=== PATIENT | male | born 1940 | race Caucasian/White ===

== ENCOUNTER 2022-07-16 11:14 | Inpatient (IN) | payer OTHER ==
[~2022-07-16] VITALS: Ht 175.3 cm; Wt 79.5 kg
[2022-07-16] MEDS: CYANOCOBALAMIN 500 MCG TAB PO SCH (09:00)
[2022-07-16] MEDS: VITAMIN D 1,000 INTERNATIONAL UNITS TABLET PO SCH (09:00)
[2022-07-16] MEDS ORDERED: NS 2,000 ML in IV 1 EA IV ONE (11:35)
[2022-07-16 12:11] LABS: BASO # 0.1 10^3/uL (0.0-0.2); BASO % 0.3 % (0.0-1.0); EOS # 0.1 10^3/uL (0.0-0.5); EOS % 0.2 % (0.0-3.0); HEMATOCRIT 37.5 % (42.0-52.0); HEMOGLOBIN 12.6 g/dl (13.5-17.5); LYMPH # 0.7 10^3/uL (1.5-5.0); LYMPH % 1.8 % (24.0-44.0); MEAN CORPUSCULAR HEMOGLOBIN 30.6 pg (27.0-33.0); MEAN CORPUSCULAR HGB CONC 33.6 g/dl (32.0-36.5); MONO % 4.7 % (2.0-8.0); NEUTROPHILS # 33.7 10^3/uL (1.5-8.5); NEUTROPHILS % 92.1 % (36.0-66.0); PLATELET COUNT, AUTOMATED 216 10^3/uL (150-450); RED BLOOD COUNT 4.12 10^6/uL (4.30-6.10)
[2022-07-16 12:19] LABS: INR 1.09; PROTHROMBIN TIME 14.3 SECONDS (12.5-14.5)
[2022-07-16 12:20] LABS: PARTIAL THROMBOPLASTIN TIME 23.5 SECONDS (24.8-34.2)
[2022-07-16 12:32] LABS: BILIRUBIN,DIRECT 0.3 MG/DL (<0.4)
[2022-07-16 12:33] LABS: ALBUMIN 3.4 G/DL (3.2-5.2); BILIRUBIN,TOTAL 0.7 MG/DL (0.3-1.2); CALCIUM LEVEL 8.8 MG/DL (8.3-10.6); CK-MB VALUE MASS 2.5 NG/ML (<3.6); CREATININE FOR GFR 2.34 MG/DL (0.70-1.30); GLOMERULAR FILTRATION RATE 28.7 (>35); MB/CK RELATIVE INDEX 1.03 (< OR =4); POTASSIUM SERUM 3.6 MMOL/L (3.5-5.1)
[2022-07-16 12:37] LABS: MONO # 1.7 10^3/uL (0.0-0.8); RSV AMPLIFICATION NEGATIVE (NEGATIVE); WHITE BLOOD COUNT 36.6 10^3/uL (4.0-10.0)
[2022-07-16] MEDS ORDERED: MOXIFLOXACIN HCL 400 MG in IV 1 EA IV ONE (12:55)
[2022-07-16] MEDS ORDERED: ACYC1TAB PO (14:52)
[2022-07-16] MEDS ORDERED: ASPI81TA26 PO (14:52)
[2022-07-16] MEDS ORDERED: VITA250T26 PO (14:52)
[2022-07-16] MEDS ORDERED: DILT240C82 PO (14:52)
[2022-07-16] MEDS ORDERED: VITA100093 PO (14:52)
[2022-07-16] MEDS ORDERED: CYAN100049 PO (14:52)
[2022-07-16] MEDS ORDERED: HOME MED LIST COMPLETE! XX SCH (14:55)
[2022-07-16] MEDS: NS 1,000 ML IV SCH (15:45)
[2022-07-16] MEDS ORDERED: ONDANSETRON 4MG 2ML VIAL IV PRN (15:45)
[2022-07-16] MEDS: IPRATROPIUM 0.5MG/ALBUTEROL 2.5MG INH SOL UD 3ML (DUONEB) NEB SCH ×2 (16:30→21:33)
[2022-07-16] MEDS: cefTRIAXone SOD 1 GM in D5W MINI-BAG PLUS 50 ML IV SCH (16:59)
[2022-07-16] MEDS: metroNIDAZOLE 500 MG in IV 1 EA IV SCH (17:45)
[2022-07-16] MEDS: ACYCLOVIR 200 MG CAPSULE PO SCH (20:19)
[2022-07-16] MEDS: ASPIRIN 81MG ENTERIC TABLET PO SCH (20:28)
[2022-07-16] MEDS: HEPARIN SOD (PORCINE) 5000UNITS/ML 1ML VIAL/SYRINGE SQ SCH (20:50)
[2022-07-17] MEDS: NS 1,000 ML IV SCH ×3 (01:45→21:21)
[2022-07-17] MEDS: metroNIDAZOLE 500 MG in IV 1 EA IV SCH ×3 (02:00→18:04)
[2022-07-17 03:05] VITALS: BP 131/57
[2022-07-17] MEDS: HEPARIN SOD (PORCINE) 5000UNITS/ML 1ML VIAL/SYRINGE SQ SCH ×3 (05:51→21:23)
[2022-07-17 06:00] VITALS: BP 126/56
[2022-07-17] MEDS: IPRATROPIUM 0.5MG/ALBUTEROL 2.5MG INH SOL UD 3ML (DUONEB) NEB SCH ×4 (07:20→19:55)
[2022-07-17 07:40] LABS: HEMOGLOBIN 11.5 g/dl (13.5-17.5); MEAN CORPUSCULAR HEMOGLOBIN 30.2 pg (27.0-33.0); MEAN CORPUSCULAR HGB CONC 31.9 g/dl (32.0-36.5); MEAN CORPUSCULAR VOLUME 94.5 fl (80.0-96.0); PLATELET COUNT, AUTOMATED 204 10^3/uL (150-450); RED BLOOD COUNT 3.81 10^6/uL (4.30-6.10); WHITE BLOOD COUNT 23.1 10^3/uL (4.0-10.0)
[2022-07-17 08:14] LABS: ALBUMIN 3.3 G/DL (3.2-5.2); BILIRUBIN,TOTAL 0.4 MG/DL (0.3-1.2); CALCIUM LEVEL 8.1 MG/DL (8.3-10.6); CREATININE FOR GFR 1.95 MG/DL (0.70-1.30); GLOMERULAR FILTRATION RATE 35.4 (>35); POTASSIUM SERUM 3.6 MMOL/L (3.5-5.1); TOTAL PROTEIN 6.1 G/DL (5.7-8.2)
[2022-07-17] MEDS: ACYCLOVIR 200 MG CAPSULE PO SCH ×2 (10:00→21:21)
[2022-07-17] MEDS: VITAMIN D 1,000 INTERNATIONAL UNITS TABLET PO SCH (10:01)
[2022-07-17] MEDS: CYANOCOBALAMIN 500 MCG TAB PO SCH (10:02)
[2022-07-17 14:00] VITALS: BP 127/60
[2022-07-17] MEDS: cefTRIAXone SOD 1 GM in D5W MINI-BAG PLUS 50 ML IV SCH (17:12)
[2022-07-17 20:30] VITALS: BP 130/60
[2022-07-17] MEDS: ASPIRIN 81MG ENTERIC TABLET PO SCH (21:21)
[2022-07-17] MEDS ORDERED: VANCOMYCIN HCL 1,000 MG, VIAL MATE ADAPTER 1 EACH in NS 250 ML IV ONE (23:00)
[2022-07-18] VITALS (8 sets, daily range): BP systolic 129–155; BP diastolic 62–73; O2SAT 94–95
[2022-07-18] MEDS ORDERED: VANCOMYCIN HCL 1,000 MG, VIAL MATE ADAPTER 1 EACH in NS 250 ML IV ONE ×3
[2022-07-18] MEDS: ALBUTEROL SULFATE 2.5MG/0.5ML INH NEB SOLN NEB PRN ×2 (00:10→23:07)
[2022-07-18] MEDS: metroNIDAZOLE 500 MG in IV 1 EA IV SCH ×3 (02:27→18:32)
[2022-07-18] MEDS: HEPARIN SOD (PORCINE) 5000UNITS/ML 1ML VIAL/SYRINGE SQ SCH ×3 (05:02→21:43)
[2022-07-18] MEDS: NS 1,000 ML IV SCH ×2 (06:21→18:32)
[2022-07-18 06:42] LABS: HEMATOCRIT 33.6 % (42.0-52.0); HEMOGLOBIN 10.9 g/dl (13.5-17.5); MEAN CORPUSCULAR HGB CONC 32.4 g/dl (32.0-36.5); MEAN CORPUSCULAR VOLUME 95.5 fl (80.0-96.0); PLATELET COUNT, AUTOMATED 210 10^3/uL (150-450); RED BLOOD COUNT 3.52 10^6/uL (4.30-6.10); WHITE BLOOD COUNT 16.2 10^3/uL (4.0-10.0)
[2022-07-18 07:12] LABS: BILIRUBIN,TOTAL 0.3 MG/DL (0.3-1.2); CALCIUM LEVEL 8.1 MG/DL (8.3-10.6); CREATININE FOR GFR 1.92 MG/DL (0.70-1.30); GLOMERULAR FILTRATION RATE 36.1 (>35); POTASSIUM SERUM 4.3 MMOL/L (3.5-5.1); TOTAL PROTEIN 5.5 G/DL (5.7-8.2)
[2022-07-18] MEDS: IPRATROPIUM 0.5MG/ALBUTEROL 2.5MG INH SOL UD 3ML (DUONEB) NEB SCH ×4 (08:05→19:19)
[2022-07-18] MEDS: CYANOCOBALAMIN 500 MCG TAB PO SCH (10:15)
[2022-07-18] MEDS: ACYCLOVIR 200 MG CAPSULE PO SCH ×2 (10:15→21:43)
[2022-07-18] MEDS: VITAMIN D 1,000 INTERNATIONAL UNITS TABLET PO SCH (10:15)
[2022-07-18] MEDS: cefTRIAXone SOD 1 GM in D5W MINI-BAG PLUS 50 ML IV SCH (17:52)
[2022-07-18] MEDS ORDERED: VANCOMYCIN HCL 1,000 MG, VIAL MATE ADAPTER 1 EACH in NS 250 ML IV SCH (21:00)
[2022-07-18] MEDS: ASPIRIN 81MG ENTERIC TABLET PO SCH (21:43)
[2022-07-19] MEDS ORDERED: BISACODYL 10MG SUPP PR ONE
[2022-07-19] MEDS ORDERED: MORPHINE 2 MG/ML 1ML VIAL IV PRN (00:45)
[2022-07-19] MEDS ORDERED: IPRATROPIUM 0.5MG/ALBUTEROL 2.5MG INH SOL UD 3ML (DUONEB) NEB ONE (01:00)
[2022-07-19] MEDS ORDERED: methylPREDNISolone 125MG 2ML VIAL IV ONE (02:00)
[2022-07-19] MEDS: metroNIDAZOLE 500 MG in IV 1 EA IV SCH ×3 (02:07→18:45)
[2022-07-19] MEDS ORDERED: BISACODYL 10MG SUPP PR PRN ×2 (02:20→10:35)
[2022-07-19 05:00] VITALS: BP 145/70
[2022-07-19 05:56] LABS: HEMATOCRIT 36.8 % (42.0-52.0); HEMOGLOBIN 11.6 g/dl (13.5-17.5); MEAN CORPUSCULAR HEMOGLOBIN 30.4 pg (27.0-33.0); MEAN CORPUSCULAR HGB CONC 31.5 g/dl (32.0-36.5); MEAN CORPUSCULAR VOLUME 96.6 fl (80.0-96.0); PLATELET COUNT, AUTOMATED 239 10^3/uL (150-450); RED BLOOD COUNT 3.81 10^6/uL (4.30-6.10); WHITE BLOOD COUNT 14.6 10^3/uL (4.0-10.0)
[2022-07-19] MEDS: NS 1,000 ML IV SCH (06:16)
[2022-07-19] MEDS: HEPARIN SOD (PORCINE) 5000UNITS/ML 1ML VIAL/SYRINGE SQ SCH ×3 (06:16→21:51)
[2022-07-19 06:22] LABS: ALBUMIN 3.3 G/DL (3.2-5.2); BILIRUBIN,TOTAL 0.3 MG/DL (0.3-1.2); CREATININE FOR GFR 1.74 MG/DL (0.70-1.30); GLOMERULAR FILTRATION RATE 40.4 (>35); POTASSIUM SERUM 4.4 MMOL/L (3.5-5.1); TOTAL PROTEIN 5.7 G/DL (5.7-8.2)
[2022-07-19] MEDS: IPRATROPIUM 0.5MG/ALBUTEROL 2.5MG INH SOL UD 3ML (DUONEB) NEB SCH ×4 (08:13→19:15)
[2022-07-19] MEDS: CYANOCOBALAMIN 500 MCG TAB PO SCH (08:55)
[2022-07-19] MEDS: VITAMIN D 1,000 INTERNATIONAL UNITS TABLET PO SCH (08:55)
[2022-07-19] MEDS: DOCUSATE SODIUM 100MG CAPSULE PO SCH ×2 (08:55→21:49)
[2022-07-19] MEDS: ACYCLOVIR 200 MG CAPSULE PO SCH ×2 (08:55→21:49)
[2022-07-19] MEDS: LACTULOSE 20GM/30ML SYRUP UDC PO SCH ×3 (11:51→23:45)
[2022-07-19] MEDS: methylPREDNISolone 125MG 2ML VIAL IV SCH ×2 (11:51→18:58)
[2022-07-19 14:00] VITALS: BP 153/71
[2022-07-19] MEDS: cefTRIAXone SOD 1 GM in D5W MINI-BAG PLUS 50 ML IV SCH (18:08)
[2022-07-19] MEDS: PANTOPRAZOLE 40MG TAB (PROTONIX) PO SCH (18:45)
[2022-07-19 21:30] VITALS: BP 132/59
[2022-07-19] MEDS: ASPIRIN 81MG ENTERIC TABLET PO SCH (21:49)
[2022-07-19] MEDS: SENNA 8.6 MG TAB (SENOKOT) PO SCH (21:49)
[2022-07-19] MEDS: ACETAMINOPHEN TAB 650MG DOSE (2X325MG) PO PRN (21:50)
[2022-07-20] MEDS: ALBUTEROL SULFATE 2.5MG/0.5ML INH NEB SOLN NEB PRN (01:30)
[2022-07-20] MEDS: metroNIDAZOLE 500 MG in IV 1 EA IV SCH ×3 (02:44→18:06)
[2022-07-20] MEDS: methylPREDNISolone 125MG 2ML VIAL IV SCH ×3 (02:44→19:32)
[2022-07-20 05:10] VITALS: BP 134/63
[2022-07-20] MEDS: HEPARIN SOD (PORCINE) 5000UNITS/ML 1ML VIAL/SYRINGE SQ SCH ×3 (05:13→20:46)
[2022-07-20] MEDS: LACTULOSE 20GM/30ML SYRUP UDC PO SCH ×4 (05:13→23:31)
[2022-07-20 05:46] LABS: MEAN CORPUSCULAR HEMOGLOBIN 30.7 pg (27.0-33.0); MEAN CORPUSCULAR HGB CONC 32.4 g/dl (32.0-36.5); PLATELET COUNT, AUTOMATED 231 10^3/uL (150-450); RED BLOOD COUNT 3.58 10^6/uL (4.30-6.10)
[2022-07-20 06:43] LABS: BILIRUBIN,TOTAL 0.3 MG/DL (0.3-1.2); CALCIUM LEVEL 8.7 MG/DL (8.3-10.6); CREATININE FOR GFR 1.67 MG/DL (0.70-1.30); GLOMERULAR FILTRATION RATE 42.4 (>35); POTASSIUM SERUM 3.9 MMOL/L (3.5-5.1); TOTAL PROTEIN 5.4 G/DL (5.7-8.2)
[2022-07-20] MEDS: IPRATROPIUM 0.5MG/ALBUTEROL 2.5MG INH SOL UD 3ML (DUONEB) NEB SCH ×4 (07:47→20:22)
[2022-07-20] MEDS: CYANOCOBALAMIN 500 MCG TAB PO SCH (08:40)
[2022-07-20] MEDS: VITAMIN D 1,000 INTERNATIONAL UNITS TABLET PO SCH (08:40)
[2022-07-20] MEDS: PANTOPRAZOLE 40MG TAB (PROTONIX) PO SCH (08:41)
[2022-07-20] MEDS: DOCUSATE SODIUM 100MG CAPSULE PO SCH ×2 (08:41→20:44)
[2022-07-20] MEDS: ACYCLOVIR 200 MG CAPSULE PO SCH ×2 (08:41→22:13)
[2022-07-20 14:00] VITALS: BP 147/65
[2022-07-20] MEDS: cefTRIAXone SOD 1 GM in D5W MINI-BAG PLUS 50 ML IV SCH (17:17)
[2022-07-20] MEDS: CALCIUM CARBONATE 500 MG CHEW U/D PO PRN ×2 (18:06→22:13)
[2022-07-20] MEDS: ASPIRIN 81MG ENTERIC TABLET PO SCH (20:45)
[2022-07-20] MEDS: SENNA 8.6 MG TAB (SENOKOT) PO SCH (20:45)
[2022-07-20] MEDS: ACETAMINOPHEN TAB 650MG DOSE (2X325MG) PO PRN (20:45)
[2022-07-20 22:00] VITALS: BP 140/65
[2022-07-21] MEDS: metroNIDAZOLE 500 MG in IV 1 EA IV SCH ×3 (03:08→18:25)
[2022-07-21] MEDS: methylPREDNISolone 125MG 2ML VIAL IV SCH (03:09)
[2022-07-21] MEDS: LACTULOSE 20GM/30ML SYRUP UDC PO SCH ×3 (05:12→18:00)
[2022-07-21] MEDS: HEPARIN SOD (PORCINE) 5000UNITS/ML 1ML VIAL/SYRINGE SQ SCH ×3 (05:19→21:00)
[2022-07-21 05:34] LABS: HEMATOCRIT 34.7 % (42.0-52.0); HEMOGLOBIN 11.1 g/dl (13.5-17.5); MEAN CORPUSCULAR HEMOGLOBIN 30.5 pg (27.0-33.0); MEAN CORPUSCULAR VOLUME 95.3 fl (80.0-96.0); PLATELET COUNT, AUTOMATED 250 10^3/uL (150-450); RED BLOOD COUNT 3.64 10^6/uL (4.30-6.10); WHITE BLOOD COUNT 22.7 10^3/uL (4.0-10.0)
[2022-07-21 05:55] LABS: BILIRUBIN,TOTAL 0.2 MG/DL (0.3-1.2); CALCIUM LEVEL 8.7 MG/DL (8.3-10.6); CREATININE FOR GFR 1.62 MG/DL (0.70-1.30); GLOMERULAR FILTRATION RATE 43.9 (>35); TOTAL PROTEIN 5.3 G/DL (5.7-8.2)
[2022-07-21 06:00] VITALS: BP 135/62
[2022-07-21] MEDS: IPRATROPIUM 0.5MG/ALBUTEROL 2.5MG INH SOL UD 3ML (DUONEB) NEB SCH ×4 (08:32→20:48)
[2022-07-21 09:00] VITALS: BP 137/62
[2022-07-21] MEDS ORDERED: E-Z-GAS II EFFERVESCENT PACKET (SODIUM BICARB./CITRIC ACID/SIMETHICONE) As Ordered ONE (10:01)
[2022-07-21] MEDS ORDERED: E-Z-PAQUE 96% w/w SUSP 176GM BTL As Ordered ONE (10:01)
[2022-07-21] MEDS ORDERED: E-Z-HD 98% w/w 340GM SUSP BTL As Ordered ONE (10:02)
[2022-07-21 14:00] VITALS: BP 150/78
[2022-07-21] MEDS: DOCUSATE SODIUM 100MG CAPSULE PO SCH ×2 (15:30→20:58)
[2022-07-21] MEDS: ACYCLOVIR 200 MG CAPSULE PO SCH ×2 (15:30→20:59)
[2022-07-21 16:08] LABS: BODY FLUID CULTURE Not indicated. (.); LEGIONELLA ANTIGEN URINE Negative (Negative); ORGANISM ID Not indicated. (.); SPECIMEN SOURCE Urine (.); URINE STREP PNEUMONIAE ANTIGEN Negative (Negative)
[2022-07-21] MEDS: CYANOCOBALAMIN 500 MCG TAB PO SCH (16:45)
[2022-07-21] MEDS: predniSONE 20 MG TAB PO SCH (16:45)
[2022-07-21] MEDS: PANTOPRAZOLE 40MG TAB (PROTONIX) PO SCH (16:45)
[2022-07-21] MEDS: VITAMIN D 1,000 INTERNATIONAL UNITS TABLET PO SCH (16:46)
[2022-07-21] MEDS: cefTRIAXone SOD 1 GM in D5W MINI-BAG PLUS 50 ML IV SCH (17:19)
[2022-07-21 20:00] VITALS: BP 147/76
[2022-07-21] MEDS: SENNA 8.6 MG TAB (SENOKOT) PO SCH (20:59)
[2022-07-21] MEDS: ASPIRIN 81MG ENTERIC TABLET PO SCH (20:59)
[2022-07-22] MEDS: metroNIDAZOLE 500 MG in IV 1 EA IV SCH ×2 (02:03→10:14)
[2022-07-22] MEDS: LACTULOSE 20GM/30ML SYRUP UDC PO SCH ×5 (05:20→23:15)
[2022-07-22] MEDS: HEPARIN SOD (PORCINE) 5000UNITS/ML 1ML VIAL/SYRINGE SQ SCH ×3 (05:20→21:13)
[2022-07-22 06:00] VITALS: BP 133/69
[2022-07-22] MEDS: IPRATROPIUM 0.5MG/ALBUTEROL 2.5MG INH SOL UD 3ML (DUONEB) NEB SCH ×4 (07:33→19:43)
[2022-07-22 09:00] VITALS: BP 138/62
[2022-07-22 09:24] LABS: BASO % 0.2 % (0.0-1.0); HEMATOCRIT 36.7 % (42.0-52.0); HEMOGLOBIN 11.6 g/dl (13.5-17.5); LYMPH # 0.2 10^3/uL (1.5-5.0); MEAN CORPUSCULAR HEMOGLOBIN 30.6 pg (27.0-33.0); MEAN CORPUSCULAR HGB CONC 31.6 g/dl (32.0-36.5); MEAN CORPUSCULAR VOLUME 96.8 fl (80.0-96.0); MONO # 0.7 10^3/uL (0.0-0.8); MONO % 3.5 % (2.0-8.0); NEUTROPHILS # 18.9 10^3/uL (1.5-8.5); NEUTROPHILS % 94.3 % (36.0-66.0); RED BLOOD COUNT 3.79 10^6/uL (4.30-6.10)
[2022-07-22] MEDS ORDERED: FUROSEMIDE 40MG/4ML VIAL IV ONE (09:25)
[2022-07-22] MEDS ORDERED: METR-265 PO (09:33)
[2022-07-22] MEDS ORDERED: CEFD300C41 PO (09:33)
[2022-07-22] MEDS ORDERED: SENO8.6T10 PO (09:33)
[2022-07-22] MEDS ORDERED: MILKSUS3 PO (09:33)
[2022-07-22] MEDS ORDERED: BACI1CAP PO (09:33)
[2022-07-22] MEDS ORDERED: VENTAER INH (09:34)
[2022-07-22] MEDS ORDERED: PRED10TA2 PO (09:34)
[2022-07-22 09:55] LABS: ALBUMIN 3.1 G/DL (3.2-5.2); BILIRUBIN,TOTAL 0.3 MG/DL (0.3-1.2); C REACTIVE PROTEIN QUANTITATIV 0.9 MG/DL (<1.0); CALCIUM LEVEL 8.8 MG/DL (8.3-10.6); CREATININE FOR GFR 1.62 MG/DL (0.70-1.30); GLOMERULAR FILTRATION RATE 43.9 (>35); POTASSIUM SERUM 4.5 MMOL/L (3.5-5.1); TOTAL PROTEIN 5.2 G/DL (5.7-8.2)
[2022-07-22] MEDS: VITAMIN D 1,000 INTERNATIONAL UNITS TABLET PO SCH (10:04)
[2022-07-22] MEDS: CYANOCOBALAMIN 500 MCG TAB PO SCH (10:05)
[2022-07-22] MEDS: ACYCLOVIR 200 MG CAPSULE PO SCH ×2 (10:11→21:11)
[2022-07-22] MEDS: DOCUSATE SODIUM 100MG CAPSULE PO SCH ×2 (10:11→21:12)
[2022-07-22] MEDS: predniSONE 20 MG TAB PO SCH (10:19)
[2022-07-22] MEDS: PANTOPRAZOLE 40MG TAB (PROTONIX) PO SCH (10:19)
[2022-07-22 10:39] LABS: PLATELET COUNT, AUTOMATED 205 10^3/uL (150-450)
[2022-07-22 10:50] LABS: ERYTHROCYTE SEDIMENTATION RATE 4 mm/hr (0-20)
[2022-07-22 14:00] VITALS: BP 145/77
[2022-07-22] MEDS: cefTRIAXone SOD 1 GM in D5W MINI-BAG PLUS 50 ML IV SCH (16:36)
[2022-07-22] MEDS: SENNA 8.6 MG TAB (SENOKOT) PO SCH (21:12)
[2022-07-22] MEDS: CEFDINIR 300 MG CAP (OMNICEF) PO SCH (21:12)
[2022-07-22] MEDS: metroNIDAZOLE (FLAGYL) 500MG TABLET PO SCH (21:12)
[2022-07-22] MEDS: ASPIRIN 81MG ENTERIC TABLET PO SCH (21:12)
[2022-07-22 22:00] VITALS: BP 125/70
[2022-07-23] MEDS: LACTULOSE 20GM/30ML SYRUP UDC PO SCH (05:20)
[2022-07-23] MEDS ORDERED: HEPARIN SOD (PORCINE) 5000UNITS/ML 1ML VIAL/SYRINGE As Ordered ONE (05:22)
[2022-07-23] MEDS ORDERED: metroNIDAZOLE (FLAGYL) 500MG TABLET As Ordered ONE (05:22)
[2022-07-23] MEDS: metroNIDAZOLE (FLAGYL) 500MG TABLET PO SCH (05:24)
[2022-07-23] MEDS: HEPARIN SOD (PORCINE) 5000UNITS/ML 1ML VIAL/SYRINGE SQ SCH (05:25)
[2022-07-23 05:28] VITALS: BP 140/65
[2022-07-23 06:16] LABS: BASO % 0.1 % (0.0-1.0); HEMATOCRIT 36.8 % (42.0-52.0); HEMOGLOBIN 11.6 g/dl (13.5-17.5); LYMPH # 0.2 10^3/uL (1.5-5.0); LYMPH % 1.3 % (24.0-44.0); MEAN CORPUSCULAR HGB CONC 31.5 g/dl (32.0-36.5); MEAN CORPUSCULAR VOLUME 95.1 fl (80.0-96.0); MONO # 0.8 10^3/uL (0.0-0.8); MONO % 5.4 % (2.0-8.0); NEUTROPHILS # 14.5 10^3/uL (1.5-8.5); NEUTROPHILS % 92.2 % (36.0-66.0); PLATELET COUNT, AUTOMATED 242 10^3/uL (150-450); RED BLOOD COUNT 3.87 10^6/uL (4.30-6.10); WHITE BLOOD COUNT 15.7 10^3/uL (4.0-10.0)
[2022-07-23 07:02] LABS: CALCIUM LEVEL 8.5 MG/DL (8.3-10.6); CREATININE FOR GFR 1.67 MG/DL (0.70-1.30); GLOMERULAR FILTRATION RATE 42.4 (>35); POTASSIUM SERUM 4.3 MMOL/L (3.5-5.1)
[2022-07-23] MEDS: IPRATROPIUM 0.5MG/ALBUTEROL 2.5MG INH SOL UD 3ML (DUONEB) NEB SCH (07:24)
[2022-07-23] MEDS: CYANOCOBALAMIN 500 MCG TAB PO SCH (08:07)
[2022-07-23] MEDS: CEFDINIR 300 MG CAP (OMNICEF) PO SCH (08:08)
[2022-07-23] MEDS: VITAMIN D 1,000 INTERNATIONAL UNITS TABLET PO SCH (08:08)
[2022-07-23] MEDS: DOCUSATE SODIUM 100MG CAPSULE PO SCH (08:09)
[2022-07-23] MEDS: ACYCLOVIR 200 MG CAPSULE PO SCH (08:09)
[2022-07-23] MEDS: PANTOPRAZOLE 40MG TAB (PROTONIX) PO SCH (08:10)
[2022-07-23 08:11] VITALS: BP 140/65
[2022-07-23] MEDS: predniSONE 20 MG TAB PO SCH (08:11)
[2022-07-23] MEDS ORDERED: FUROSEMIDE 40MG/4ML VIAL IV ONE (10:45)
[2022-07-23] MEDS ORDERED: LASI20TA3 PO (10:47)
[2022-07-23] MEDS ORDERED: SELF1KIT MC (10:47)
[2022-07-23] MEDS ORDERED: FUROSEMIDE 40 MG TAB PO ONE (11:15)
== END 2022-07-23 11:29 | disposition home or self-care (01) | DRG 189 ==
LOC: M ED 11:14 → M ED INP 15:43 → M MSPAV 07-17 03:03
PROVIDERS: ADMIT Internal Medicine; ATTEND General Practice
DX: J96.01 Acute respiratory failure with hypoxia (principal); J69.0 Pneumonitis due to inhalation of food and vomit; N17.9 Acute kidney failure, unspecified; J44.1 Chronic obstructive pulmonary disease with (acute) exacerbation; R78.81 Bacteremia; K56.699 Other intestinal obstruction unspecified as to partial versus complete obstruction; I10 Essential (primary) hypertension; E53.8 Deficiency of other specified B group vitamins; K59.00 Constipation, unspecified; R19.7 Diarrhea, unspecified; Z90.49 Acquired absence of other specified parts of digestive tract; Z85.118 Personal history of other malignant neoplasm of bronchus and lung; Z87.891 Personal history of nicotine dependence; Z66 Do not resuscitate; Z86.19 Personal history of other infectious and parasitic diseases; Z79.82 Long term (current) use of aspirin; Z79.899 Other long term (current) drug therapy; Z88.0 Allergy status to penicillin; Z20.822 Contact with and (suspected) exposure to COVID-19; Z90.2 Acquired absence of lung [part of]; D72.829 Elevated white blood cell count, unspecified; T38.0X5A Adverse effect of glucocorticoids and synthetic analogues, initial encounter; R13.10 Dysphagia, unspecified; Z77.090 Contact with and (suspected) exposure to asbestos

== ENCOUNTER 2022-08-12 15:18 | Emergency (ER) | payer OTHER ==
[~2022-08-12] VITALS: Ht 177.8 cm; Wt 93.3 kg
[~2022-08-12 15:18] MED LIST: ACYC1TAB PO; ASPI81TA26 PO; BACI1CAP PO; CEFD300C41 PO; CYAN100049 PO; DILT240C82 PO; LASI20TA3 PO; METR-265 PO; MILKSUS3 PO; PRED10TA2 PO; SELF1KIT MC; SENO8.6T10 PO; VENTAER INH; VITA100093 PO; VITA250T26 PO
[2022-08-12 17:37] LABS: BASO % 0.4 % (0.0-1.0); EOS # 0.6 10^3/uL (0.0-0.5); EOS % 6.3 % (0.0-3.0); HEMATOCRIT 34.5 % (42.0-52.0); HEMOGLOBIN 11.2 g/dl (13.5-17.5); LYMPH # 0.3 10^3/uL (1.5-5.0); LYMPH % 3.5 % (24.0-44.0); MEAN CORPUSCULAR HEMOGLOBIN 29.9 pg (27.0-33.0); MEAN CORPUSCULAR HGB CONC 32.5 g/dl (32.0-36.5); MEAN CORPUSCULAR VOLUME 92.2 fl (80.0-96.0); MONO # 1.1 10^3/uL (0.0-0.8); MONO % 12.3 % (2.0-8.0); NEUTROPHILS # 7.1 10^3/uL (1.5-8.5); NEUTROPHILS % 77.1 % (36.0-66.0); PLATELET COUNT, AUTOMATED 215 10^3/uL (150-450); RED BLOOD COUNT 3.74 10^6/uL (4.30-6.10); WHITE BLOOD COUNT 9.3 10^3/uL (4.0-10.0)
[2022-08-12 18:34] VITALS: BP 137/65
== END 2022-08-12 18:41 | disposition home or self-care (01) ==
LOC: M ED 15:18
DX: I10 Essential (primary) hypertension (principal); R42 Dizziness and giddiness; T88.7XXA Unspecified adverse effect of drug or medicament, initial encounter; J44.9 Chronic obstructive pulmonary disease, unspecified; Z99.81 Dependence on supplemental oxygen; R60.9 Edema, unspecified; Z90.49 Acquired absence of other specified parts of digestive tract; Z87.891 Personal history of nicotine dependence; Z88.0 Allergy status to penicillin; Z90.2 Acquired absence of lung [part of]; Z79.82 Long term (current) use of aspirin; Z79.51 Long term (current) use of inhaled steroids; Z79.899 Other long term (current) drug therapy